=== PATIENT | male | born 1950 | race Caucasian/White ===

== ENCOUNTER 2017-07-09 19:02 | Emergency (ER) | payer MEDICARE ==
[2017-07-09 19:05] VITALS: BP 130/79; PULSE 74; RESP 20; TEMP 98.9; O2SAT 95
--- NOTE | 2017-07-09 20:04 | RADRPT ---
EXAM DATE/TIME: 07/09/2017 19:31 [facility] COMPARISON: No previous studies available for comparison. INDICATIONS : Short of breath for several days. MEDICAL HISTORY : Carcinoma, lung. Asbestos. SURGICAL HISTORY : Lung lobectomy. ENCOUNTER: Initial ACUITY: 3 days PAIN SCORE: 0/10 LOCATION: Bilateral chest FINDINGS: A tiny left pleural effusion is noted. Nodular infiltrate or true pulmonary nodule is noted within th e left lung base. The pulmonary vascular pattern is normal. CONCLUSION: 1. Tiny left pleural effusion. 2. Nodular infiltrate or true pulmonary nodule within the left lung base. Kennedy Deshpande MD on July 09, 2017 at 20:01 Board Certified Radiologist. This report was verified electronically.
[2017-07-09 20:16] LABS: AUTOMATED NEUTROPHIL # 5.8 TH/MM3 (1.8-7.7); BASOPHIL # 0.1 TH/MM3 (0-0.2); BASOPHIL % 0.8 % (0.0-2.0); EOSINOPHIL # 0.2 TH/MM3 (0-0.4); EOSINOPHIL % 2.4 % (0.0-4.0); HEMATOCRIT 42.2 % (39.0-51.0); HEMO FLAGS DIFF FINAL; LYMPH % 29.7 % (9.0-44.0); MEAN CELL VOLUME 86.2 FL (80.0-100.0); MEAN CORPUSCULAR HEMOGLOBIN 29.3 PG (27.0-34.0); MONO % 10.1 % (0.0-8.0); PLATELET COUNT 231 TH/MM3 (150-450); RED CELL DISTRIBUTION WIDTH 13.1 % (11.6-17.2); WHITE BLOOD COUNT 10.2 TH/MM3 (4.0-11.0)
[2017-07-09 20:30] LABS: POTASSIUM 3.9 MEQ/L (3.5-5.1)
[2017-07-09] MEDS ORDERED: TETANUS/DIPHTHERIA TOXOID ADULT 0.5 ML VIAL IM ONE (21:45)
[2017-07-09] MEDS ORDERED: IBUPROFEN 600 MG TAB PO ONE (21:45)
[2017-07-09] MEDS ORDERED: CEPHALEXIN MONOHYDRATE 500 MG CAP PO ONE (21:45)
--- NOTE | 2017-07-09 22:21 | RADRPT ---
EXAM DATE/TIME: 07/09/2017 21:57 [facility] COMPARISON: No previous studies available for comparison. INDICATIONS : Patient has laceration to left 1st digit from kitchen knife. MEDICAL HISTORY : None. SURGICAL HISTORY : None. ENCOUNTER: Initial ACUITY: 1 day PAIN SCORE: 4/10 LOCATION: Left 1st digit. FINDINGS: No acute fracture or dislocation is noted. No radiopaque foreign body is noted. 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 CONCLUSION: No acute fracture, dislocation or radiopaque foreign body. Kennedy Deshpande MD on July 09, 2017 at 22:18 Board Certified Radiologist. This report was verified electronically.
[2017-07-09 23:00] VITALS: BP 128/80; PULSE 70; RESP 20; O2SAT 96
[2017-07-09] MEDS ORDERED: LIDOCAINE HCL 1% 50 ML VIAL INFIL ONE (23:15)
[2017-07-09] MEDS ORDERED: LEVOFLOXACIN 500 MG TAB PO ONE (23:45)
[2017-07-09] MEDS ORDERED: LEVA500T33 PO (23:46)
[2017-07-09] MEDS ORDERED: BACI500O2 TOPICAL (23:46)
--- NOTE | 2017-07-09 23:47 | PD ---
HPI Chief Complaint: Medical Clearance Time Seen by Provider: 21:32 Travel History International Travel<30 days: No Contact w/Intl Traveler<30days: No Traveled to known affect area: No History of Present Illness HPI 67-year-old male came to the emergency room with multiple complaints including cough, fever and chills, some sore throat for past 3-4 days. He says he is from [place] and down here [facility]. He has been around some sick people who have been coughing as well. Patient is a heavy smoker. In addition to all these complains he says that this evening he was trying to use his pocket knife to cut a plastic bit bad open and ended up injuring his left thumb. It bled quite a bit at the scene. As were stable. There was workup initiated in the waiting room including chest x-ray and by the time he came in to the ER the blood test results were back. Patient does not appear to be in any distress and vital signs are stable. [facility] Past Medical History Narrative Medical List of his past medical, surgical, social and family history is reviewed from the nursing note. Respiratory: Yes (LUNG CA; COPD) Tetanus Vaccination: Unknown Influenza Vaccination: No Past Surgical History Other Surgery: Yes (Lung Ca ) Social History Alcohol Use: No Tobacco Use: Yes Substance Use: No Allergies-Medications (Allergen,Severity, Reaction): Coded Allergies: No Known Allergies (Unverified , 07/09/17) Comments No known drug allergies. Reported Meds & Prescriptions Reported Meds & Active Scripts Active Bacitracin Topical 500 Unit/Gm Oint 1 Applic TOPICAL BID 7 Days Levaquin (Levofloxacin) 500 Mg Tablet 500 Mg PO DAILY 10 Days Narrative Medication List of his home medications reviewed from the nursing note. Review of Systems Except as stated in HPI: all other systems reviewed are Neg HENT: Positive: Sore Throat Respiratory: Positive: Cough Physical Exam Narrative GENERAL: Awake, alert, no obvious distress SKIN: Focused skin assessment warm/dry. Left thumb at the tip has a curvilinear clean edge laceration that is about 2 cm going from the medial aspect all the way to the ulnar aspect HEAD: Atraumatic. Normocephalic. EYES: Pupils equal and round. No scleral icterus. No injection or drainage. ENT: No nasal bleeding or discharge. Mucous membranes pink and moist. Slight erythema of the pharynx with no exudate NECK: Trachea midline. No JVD. CARDIOVASCULAR: Regular rate and rhythm. No murmur appreciated. RESPIRATORY: No accessory muscle use. Clear to auscultation. Breath sounds equal bilaterally. GASTROINTESTINAL: Abdomen soft, non-tender, nondistended. Hepatic and splenic margins not palpable. MUSCULOSKELETAL: No obvious deformities. No clubbing. No cyanosis. No edema. NEUROLOGICAL: Awake and alert. No obvious cranial nerve deficits. Motor grossly within normal limits. Normal speech. PSYCHIATRIC: Appropriate mood and affect; insight and judgment normal. Data Data Last Documented VS Orders Orders Complete Blood Count With Diff (07/09/17 19:25) Basic Metabolic Panel (Bmp) (07/09/17 19:25) B-Type Natriuretic Peptide (07/09/17 19:25) Electrocardiogram (07/09/17 ) Chest, Pa & Lat (07/09/17 ) Tetanus/Diphtheria Tox Adult (Tetanus/Di (07/09/17 21:45) Ibuprofen (Motrin) (07/09/17 21:45) Cephalexin (Keflex) (07/09/17 21:45) Finger ([id number]) (07/09/17 ) Lidocaine 1% Inj (50 Ml) (Xylocaine 1% I (07/09/17 23:15) Levofloxacin (Levaquin) (07/09/17 23:45) Ed Discharge Order (07/09/17 23:39) Labs Laboratory Tests Test 07/09/17 19:50 White Blood Count 10.2 TH/MM3 Red Blood Count 4.90 MIL/MM3 Hemoglobin 14.4 GM/DL Hematocrit 42.2 % Mean Corpuscular Volume 86.2 FL Mean Corpuscular Hemoglobin 29.3 PG Mean Corpuscular Hemoglobin Concent 34.0 % Red Cell Distribution Width 13.1 % Platelet Count 231 TH/MM3 Mean Platelet Volume 8.8 FL Neutrophils (%) (Auto) 57.0 % Lymphocytes (%) (Auto) 29.7 % Monocytes (%) (Auto) 10.1 % Eosinophils (%) (Auto) 2.4 % Basophils (%) (Auto) 0.8 % Neutrophils # (Auto) 5.8 TH/MM3 Lymphocytes # (Auto) 3.0 TH/MM3 Monocytes # (Auto) 1.0 TH/MM3 Eosinophils # (Auto) 0.2 TH/MM3 Basophils # (Auto) 0.1 TH/MM3 CBC Comment DIFF FINAL Differential Comment Blood Urea Nitrogen 17 MG/DL Creatinine 1.19 MG/DL Random Glucose 99 MG/DL Calcium Level 8.9 MG/DL Sodium Level 137 MEQ/L Potassium Level 3.9 MEQ/L Chloride Level 105 MEQ/L Carbon Dioxide Level 24.0 MEQ/L Anion Gap 8 MEQ/L Estimat Glomerular Filtration Rate 61 ML/MIN B-Type Natriuretic Peptide 16 PG/ML MDM Medical Decision Making Medical Screen Exam Complete: Yes Emergency Medical Condition: Yes Medical Record Reviewed: Yes Differential Diagnosis Thumb laceration, pneumonia Narrative Course 11:42 PM chest x-ray suggestive of a possible pneumonia especially given patient 's symptoms clinically. Blood test results are within normal limit. I had ordered an x-ray of the thumb is negative for any foreign body or bony injuries. Patient has been given 1 dose of oral Levaquin here that should take care of pneumonia as well as prophylaxis for the wound. I have repaired his laceration. Please refer to my procedure note. I've answered all his questions to the best of my ability. I'll discharge the patient home. He has been lectured by me regarding smoking cessation. Procedures Procedure Narrative LACERATION LOCATION: Left thumb tip LENGTH: 2.5 cm NUMBER OF STITCHES/VITALIY: 5 stitch or REPAIR: The area of the laceration was prepped with Betadine and sterilely draped. The laceration was infiltrated with 1% lidocaine for digital block. The wound was copiously irrigated and explored without evidence of foreign body, tendon injury or neurovascular injury. The wound was closed using 4-0 Prolene. This was a single layer repair. A sterile dressing was applied. The patient was advised to keep the dressing clean and dry. Patient tolerated the procedure well. EKG Prior to Arrival: No Diagnosis Primary Impression: Laceration of thumb Qualified Codes: S61.012A - Laceration without foreign body of left thumb without damage to nail, initial encounter Additional Impression: Pneumonia Qualified Codes: J18.9 - Pneumonia, unspecified organism Referrals: Primary Care Physician 3 days Additional Instructions: Please return to the ER if the condition worsens or any other new concerns. Take the antibiotic as per the prescription direction. You need to quit smoking in order to feel better. Keep the wound clean and dry for next 48 hours. Apply bacitracin ointment twice a day until the stitches come out. The stitches should come out in 7-10 days. You can come to the emergency room or go and see her primary care for that. Med/Other Pt SpecificInfo: Prescription(s) given Scripts Bacitracin Topical (Bacitracin Topical) 500 Unit/Gm Oint 1 APPLIC TOPICAL BID for Infection for 7 Days, #113 GM 0 Refills Prov: Jama Sheikh MD 07/09/17 Levofloxacin (Levaquin) 500 Mg Tablet 500 MG PO DAILY for Infection for 10 Days, #10 TAB 0 Refills Prov: Jama Sheikh MD 07/09/17 Disposition: 01 DISCHARGE HOME Condition: Stable Jama Sheikh MD Jul 09, 2017 23:47
--- NOTE | 2017-07-10 15:55 | EKG ---
Date Performed: 07/09/2017 Time Performed: 19:57:09 PTAGE: 67 years EKG: Sinus rhythm NORMAL ECG NO PREVIOUS TRACING DOCTOR: Uriah Bryant Interpretating Date/Time 07/10/2017 15:54:05
== END 2017-07-10 00:06 | disposition home or self-care (01) ==
LOC: NEPE 19:02
DX: S61.012A Laceration without foreign body of left thumb without damage to nail, initial encounter (principal); J44.0 Chronic obstructive pulmonary disease with (acute) lower respiratory infection; J18.9 Pneumonia, unspecified organism; F17.210 Nicotine dependence, cigarettes, uncomplicated; R06.02 Shortness of breath; W26.0XXA Contact with knife, initial encounter; Y93.89 Activity, other specified; Z85.118 Personal history of other malignant neoplasm of bronchus and lung; Z23 Encounter for immunization
CPT/HCPCS: 12001; 71020; 73140; 80048; 83880; 85025; 90471; 90714; 93005